=== PATIENT | female | born 1960 | race Caucasian/White ===

== ENCOUNTER 2023-07-02 05:54 | Day surgery (SDC) | payer BC ==
[2023-07-01 10:10] VITALS: BMI 49.4
[2023-07-02] MEDS ORDERED: PROPOFOL 200 MG/20 ML VIAL ONE (07:55)
[2023-07-02] MEDS ORDERED: Lidocaine 1% PF 5 ML VIAL ONE (07:55)
[2023-07-02] MEDS ORDERED: Esmolol 100 MG/10 ML VIAL ONE (07:55)
== END 2023-07-02 08:50 | disposition home or self-care (01) ==
LOC: SDC 05:54
PROVIDERS: ATTEND Internal Medicine Gastroenterology
PROC: 0DJ08ZZ Inspection of Upper Intestinal Tract, Via Natural or Artificial Opening Endoscopic (ICD-10-PCS; principal; 2023-07-02)
DX: K21.9 Gastro-esophageal reflux disease without esophagitis (principal); K44.9 Diaphragmatic hernia without obstruction or gangrene; K31.7 Polyp of stomach and duodenum; J45.909 Unspecified asthma, uncomplicated; E07.9 Disorder of thyroid, unspecified; Z88.5 Allergy status to narcotic agent; Z79.899 Other long term (current) drug therapy
CPT/HCPCS: J2704